=== PATIENT | male | born 1970 | race American Indian/Alaskan Native ===

== ENCOUNTER 2018-09-12 17:47 | Emergency (ER) | payer OTHER ==
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
[2018-09-12] MEDS ORDERED: IBUPROFEN PO ONE (20:49)
[2018-09-12] MEDS ORDERED: PERCOCET 5/325 PO ONE (20:49)
[2018-09-12] MEDS ORDERED: ZOFRAN ODT PO ONE (20:49)
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
[2018-09-13 00:17] VITALS: BP 112/68
== END 2018-09-12 22:20 | disposition home or self-care (01) ==
LOC: ED 17:47
DX: S43.92XA Sprain of unspecified parts of left shoulder girdle, initial encounter (principal); S20.212A Contusion of left front wall of thorax, initial encounter; Z79.1 Long term (current) use of non-steroidal anti-inflammatories (NSAID); V89.2XXA Person injured in unspecified motor-vehicle accident, traffic, initial encounter; Y93.89 Activity, other specified; Y92.488 Other paved roadways as the place of occurrence of the external cause; Y99.8 Other external cause status
CPT/HCPCS: 99283; Q0162